=== PATIENT | male | born 1995 | race Caucasian/White ===

== ENCOUNTER 2024-03-05 09:21 | Emergency (ER) | payer SELFPAY ==
[2024-03-05 09:27] VITALS: BP 187/93; PULSE 99; TEMP 37.3; O2SAT 100; BMI 26.6
--- NOTE | 2024-03-05 10:01 | ED.MALEGU1 ---
HPI - Male Genitourinary General Chief complaint: Urogenital-Male Stated complaint: PENILE SWELLING Time Seen by Provider: 03/05/24 10:01 Source: patient Mode of arrival: walk-in Limitations: no limitations History of Present Illness HPI Narrative: This patient here for evaluation of his genital area. He admits to masturbating very aggressively recently and noticed some swelling after that. He is does not have any penile discharge or other symptoms of an STD. There is no other trauma to the area. The vera involves the shaft of the penis and not the scrotal area. He does not have a history of other urethral or genital problems or symptoms such as dysuria or hematuria. He has not noticed any swelling of the testicular area. He has tried applying both ice and heat packs to the area. Related Data Allergies Allergy/AdvReac Type Severity Reaction Status Date / Time No Known Drug Allergies Allergy Verified 03/05/24 09:26 PFSH PFSH Social History Little interest or pleasure in doing things: several days Feeling down, depressed, or hopeless: several days Exam Narrative Exam Narrative: Vital signs are stable. He is moderately anxious. The presence of a male nurse he was examined. The lower abdomen area is normal. The scrotal contents are normal there is no swelling erythema or tenderness to palpation. He is uncircumcised male. The foreskin easily retracts with there is no phimosis or paraphimosis. There is no genital lesions on the shaft of the penis or the foreskin area. The main shaft of the penis is very minimally swollen. There is no bruising or ecchymosis. Constitutional Vital Signs, click to edit/add: Last Vital Signs Temp 99.1 F 03/05/24 09:27 Pulse 99 H 03/05/24 09:27 Resp 20 03/05/24 09:27 BP 187/93 H 03/05/24 09:27 Pulse Ox 100 03/05/24 09:27 O2 Del Method Room Air 03/05/24 09:27 Course Vital Signs Vital signs: Vital Signs Temperature 99.1 F 03/05/24 09:27 Pulse Rate 99 H 03/05/24 09:27 Respiratory Rate 20 03/05/24 09:27 Blood Pressure 187/93 H 03/05/24 09:27 Pulse Oximetry 100 03/05/24 09:27 Oxygen Delivery Method Room Air 03/05/24 09:27 Temperature 99.1 F 03/05/24 09:27 Pulse Rate 99 H 03/05/24 09:27 Respiratory Rate 20 03/05/24 09:27 Blood Pressure 187/93 H 03/05/24 09:27 Pulse Oximetry 100 03/05/24 09:27 Oxygen Delivery Method Room Air 03/05/24 09:27 MDM - Male Genitourinary MDM Narrative Medical decision making narrative: Patient has self-inflicted swelling of the genital area from masturbation and has mild swelling. I do not see any other medical conditions today. Cold compresses and rest were advised. Discharge Plan Discharge Stand Alone Forms: Work/School Release, Portal Instructions Chief Complaint: Urogenital-Male Clinical Impression: Pain of male genitalia Patient Disposition: Home, Self-Care Time of Disposition Decision: 10:04 Print Language: [place] Additional Instructions: Cold compresses every several hours. 15 minutes only. Do not use heat to the area. Follow-up with Dr. Wilson, urologist as necessary Referrals: Physician,Non-Staff, MD [Primary Care Provider] - 1 week
== END 2024-03-05 10:16 | disposition home or self-care (01) ==
PROVIDERS: Emergency Provider Emergency Medicine Emergency Medical Services
DX: N48.89 Other specified disorders of penis (principal)
CPT/HCPCS: 99281